=== PATIENT | male | born 1965 | race Caucasian/White ===

== ENCOUNTER → 2016-05-27 | Outpatient (CLI) | payer BC ==
[~2016-05-27] MED LIST: ACCURETIC 20-121 TAB PO; ASPIRIN PO; ASPIRIN81 M2 PO; CARVEDILOL6.25 MG PO; CLOPIDOGREL75 MG PO; COLACE PO; FISH OIL 1,0001 EAC1 PO; FUROSEMIDE40 MG PO; JANUVIA PO; LIPITOR PO; LISINOPRIL20 MG PO; METFORMIN PO; MICRO-K10 ME2 PO; POTASSIUM CHLO10 MEQ PO; ROXICODONE5 MG PO; SIMVASTATIN40 MG PO; TYLENOL325 M1 PO
--- NOTE | ~2016-05-27 | CT55 ---
[facility] A Service of [facility] / [facility] RADIOLOGY TEXT RESULTS PATIENT: OSMAR HATHAWAY LOCATION: [facility] : 61 UNIT #: [id number] AGE: [address]: Alana Lama SEX: M ORDER DR: [id number] [facility] [address] [place], [place] [address] [id number] O MR#: [id number] Acc #: [id number] NAME: OSMAR HATHWAAY : 1965 SEX: M STUDY DATE/TIME: 05/27/2016 13:28 UNIT: [facility] ROOM: STUDY DESCRIPTION: CT Chest W Con Attending Physician: Alana Laam A.P.R.N. Referring Physician: Jeremiah Price M.D. Ordering Physician: Alana Lama A.P.R.N. Primary Care Physician: Luzma Miranda M.D. MEDICAL IMAGING REPORT This report is preliminary unless electronic signature is present EXAM CT of the chest with contrast. INDICATION 51-year-old male with followup lung cancer. Routine followup. Observation of a malignant process. TECHNIQUE CT of the chest performed with contrast. Coronal and sagittal reformatted images obtained. This CT exam was performed with one or more of the following radiation dose reduction techniques: automatic exposure control, adjustment of mA and/or kV according to patient size, and iterative reconstruction. COMPARISON STUDIES Comparison with 01/28/2015. FINDINGS There are postop changes in scarring involving the right lung. Minimal emphysema. There is no suspicious pulmonary nodule. No suspicious lymphadenopathy. Calcified mediastinal lymph nodes. No pleural effusion. Limited imaging in the upper abdomen demonstrates cholelithiasis. The bone windows demonstrate degenerative changes of the thoracic spine. IMPRESSION Postoperative changes of the right lung. No evidence for metastatic disease. Dictated by... Ja Patel M.D. [facility] A Service [facility] RADIOLOGY TEXT RESULTS PATIENT: OSMAR HATHAWAY LOCATION: [facility] : 61 UNIT #: [id number] AGE: [address]: Alana Lama SEX: M ORDER DR: THIS IS AN ELECTRONICALLY VERIFIED REPORT Ja Patel M.D. at 05/27/2016 5:03 PM KATIE/zackary TD: 05/27/2016 15:48 JOB #: [id number] MEDICAL IMAGING REPORT Page 1 of 1 COPY
[2016-05-27 13:01] LABS: GLOM FILT RATE Estimated 85.6 mL/min (>60)
== END | disposition home or self-care (01) ==
LOC: CCAT 12:15
PROVIDERS: Nurse Practitioner Acute Care
DX: R05 Cough (principal); Z85.118 Personal history of other malignant neoplasm of bronchus and lung; Z98.890 Other specified postprocedural states
CPT/HCPCS: 36415; 71260; 82565; 84520; Q9967